=== PATIENT | female | born 1980 | race Caucasian/White ===

== ENCOUNTER 2017-07-26 19:53 | Emergency (ER) | payer BC, OTHER ==
[~2017-07-26] VITALS: Ht 157.5 cm; Wt 87.1 kg
[~2017-07-26 19:53] MED LIST: HYDR-4683 PO; LEV500T GT; TAM04C PO
[2017-07-26 20:36] LABS: Basophils # (auto) 0.1 uL; Basophils % (auto) 1.4 % (0.0-2.0); Eosinophils # (auto) 0.1 uL; Eosinophils % (auto) 0.6 % (0.0-7.0); Lymphocytes % (auto) 21.9 % (10.0-50.0); Mean Corpuscular Hemoglobin 31.8 pg (28.0-32.0); Mean Corpuscular Hgb Conc. 34.2 g/dL (32.0-36.0); Mean Platelet Volume 8.3 fL (6.9-10.8); Monocytes # (auto) 0.6 uL; Monocytes % (auto) 6.8 % (0.0-12.0); Neutrophils # (auto) 6.2 uL; Neutrophils % (auto) 69.3 % (37.0-80.0); Platelet Count (auto) 284 10^3/uL (140-450); Red Cell Distribution Width 12.7 % (11.8-14.3); White Blood Cell 8.9 10^3/uL (4.4-10.8)
[2017-07-26 20:40] LABS: Urine Bilirubin Negative (Negative); Urine Blood 3+ /uL (Negative); Urine Ca Oxalate Crystal FEW (None Seen); Urine Color Yellow (Yellow); Urine Glucose Normal (Normal); Urine Ketone Negative (Negative); Urine Mucus FEW (None Seen); Urine Nitrite Negative (Negative); Urine RBC 193 /hpf (0 - 4); Urine Squamous Epithelial Cell FEW /hpf (<5); Urine Urobilinogen Normal (Negative); Urine pH 5.5 (5.0-8.0)
[2017-07-26 20:57] LABS: Albumin 4.3 g/dL (3.4-5.0); BUN/Creatinine Ratio 20.8; Bilirubin, Total 0.5 mg/dL (0.2-1.0); Calcium 9.6 mg/dL (8.5-10.1); Magnesium 2.3 mg/dL (1.6-2.6); Potassium 4.1 mmol/L (3.5-5.1); Total Protein 8.1 g/dL (6.4-8.2)
[2017-07-27] MEDS ORDERED: MORPHINE SULFATE 10 MG/ML INJ 1ML SDV IM ONE (04:15)
[2017-07-27] MEDS ORDERED: ONDANSETRON ODT 4 MG TAB PO ONE (04:15)
[2017-07-27] MEDS ORDERED: MORPHINE SULFATE 4 MG/ML SYRG ONE (04:24)
[2017-07-27 04:35] VITALS: BP 142/82
== END 2017-07-27 04:43 | disposition home or self-care (01) ==
LOC: ER 19:53
DX: N20.0 Calculus of kidney (principal); Z88.1 Allergy status to other antibiotic agents; Z88.8 Allergy status to other drugs, medicaments and biological substances; Z79.899 Other long term (current) drug therapy
CPT/HCPCS: 36415; 74176; 80053; 81001; 81025; 82150; 83690; 83735; 85025; 96372; 99285; J2270; Q0162